=== PATIENT | female | born 1970 | race Caucasian/White ===

== ENCOUNTER 2018-07-02 17:03 | Emergency (ER) | payer OTHER ==
[2018-07-02] MEDS ORDERED: diphenhydrAMINE 50 MG/ML VIAL ONE (17:50)
[2018-07-02] MEDS ORDERED: Metoclopramide HCl 10 MG/2 ML VIAL ONE (17:51)
[2018-07-02] MEDS ORDERED: Ondansetron ODT 4 MG TAB ONE (18:30)
[2018-07-02] MEDS ORDERED: SUMAtriptan Succinate 6 MG/0.5 ML VIAL ONE ×2 (18:36→18:56)
[2018-07-02] MEDS ORDERED: Lorazepam 1 MG TAB ONE (18:41)
== END 2018-07-02 19:33 | disposition home or self-care (01) ==
LOC: SCSER 17:03
DX: G43.909 Migraine, unspecified, not intractable, without status migrainosus (principal); I10 Essential (primary) hypertension; F32.9 Major depressive disorder, single episode, unspecified
CPT/HCPCS: 99283; J1200; J2765; J3030; Q0162